=== PATIENT | male | born 1985 | race Caucasian/White ===

== ENCOUNTER 2017-05-11 17:41 | Emergency (ER) | payer BC ==
[2017-05-11 18:06] VITALS: BP 112/72
--- NOTE | 2017-05-11 19:40 | UC ---
Complaint Male HPI - HPI Summary HPI Summary: fever x 2 days + chills, body aches , fatigue , polyuria no dysuria , no back pain , no flank pain - History of Current Complaint Chief Complaint: UCRespiratory Stated Complaint: FLU SYMPTOMS Time Seen by Provider: 05/11/17 18:55 Hx Obtained From: Patient Onset/Duration: Gradual Onset, Lasting Days - 2, Still Present Timing: Constant Severity Initially: Severe Severity Currently: Severe Pain Intensity: 0 Pain Scale Used: 0-10 Numeric Aggravating Factor(s): Voiding Alleviating Factor(s): Nothing Associated Signs And Symptoms: Negative: Diaphoresis, Back Pain, Fever, Hematuria, Dysuria, Constipation, Blood in Stool, Rectal Pain, Appetite, Nausea , Vomiting(# Of Episodes =), Penile Swelling, Penile Discharge - Allergies/Home Medications Allergies/Adverse Reactions: Allergies Allergy/AdvReac Type Severity Reaction Status Date / Time Dextromethorphan Allergy Severe hives,coma Verified 05/11/17 18:06 PMH/Surg Hx/FS Hx/Imm Hx Previously Healthy: Yes Other History Of: Negative For: Anticoagulant Therapy - Surgical History Surgical History: None - Family History Known Family History: Negative: Diabetes - Social History Alcohol Use: Rare Substance Use Type: None Smoking Status (MU): Never Smoked Tobacco Review of Systems Constitutional: Fever, Chills, Fatigue Skin: Negative Eyes: Negative ENT: Negative Respiratory: Negative Cardiovascular: Negative Genitourinary: Frequency Is Patient Immunocompromised?: No All Other Systems Reviewed And Are Negative: Yes Physical Exam Triage Information Reviewed: Yes Appearance: Well-Appearing, No Pain Distress, Well-Nourished Vital Signs: Initial Vital Signs Temp 97.1 F 05/11/17 18:02 Pulse 109 05/11/17 18:02 Resp 16 05/11/17 18:02 BP 112/72 05/11/17 18:02 Pulse Ox 98 05/11/17 18:02 Vital Signs Reviewed: Yes Eyes: Positive: Conjunctiva Clear ENT: Positive: Normal ENT inspection, Hearing grossly normal, Pharynx normal Neck: Positive: Supple, Nontender, No Lymphadenopathy Respiratory: Positive: Chest non-tender, Lungs clear, Normal breath sounds Cardiovascular: Positive: RRR, No Murmur, Pulses Normal Abdominal Exam: Normal Abdomen Description: Positive: Nontender, No Organomegaly, Soft. Negative: CVA Tenderness (R), CVA Tenderness (L), Distended, Guarding Bowel Sounds: Positive: Present Skin Exam: Normal Complaint Male Course/Dx - Differential Dx/Diagnosis Provider Diagnoses: prostatitis Discharge - Discharge Plan Condition: Stable Disposition: HOME Prescriptions: Ciprofloxacin TAB* [Cipro 500 MG TAB*] 500 mg PO BID #30 tab Patient Education Materials: Prostatitis (ED) Forms: *Work Release Referrals: No Primary Care Phys,NOPCP [Primary Care Provider] - 7 Days
== END 2017-05-11 19:22 | disposition home or self-care (01) ==
LOC: UCCORT 17:41
DX: N41.9 Inflammatory disease of prostate, unspecified (principal)
CPT/HCPCS: 81003; 99202; G0463

== ENCOUNTER 2017-07-08 10:53 | Emergency (ER) | payer BC ==
[2017-07-08 12:12] VITALS: BP 129/85
--- NOTE | 2017-07-08 12:22 | UC ---
Skin Complaint HPI - HPI Summary HPI Summary: 32 year old with rash . Male with worsening itching since leaving hospital. rash on right outer wrist. started 2 days ago after being in the hosp with his after of baby. the rask is spreading around thw rist and down on his hand. he has been cleaning it with rubbing alcohol. He has taken benadryl and has applied lotion. The rash doesnt really itch anymore after he used the rubbing alcohol, but at first it did itch. He denies burning, stabbing, shooting type pains in the arm. Hwe denies flu like symptoms. Neither his or baby have sx. He denies hx of asthma, allergies, excema. 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 He also washes his hands a lot and is exposed to chemicals. He has never had a reaction to the chemicals before. [ End ] - History of Current Complaint Chief Complaint: UCSkin Time Seen by Provider: 07/08/17 12:13 Stated Complaint: RASH Hx Obtained From: Patient Onset/Duration: Gradual Onset Timing: Constant Onset Severity: Moderate Current Severity: Moderate Pain Intensity: 0 - Allergy/Home Medications Allergies/Adverse Reactions: Allergies Allergy/AdvReac Type Severity Reaction Status Date / Time MS Dextromethorphan Allergy Severe hives,coma Verified 07/08/17 12:12 [Dextromethorphan] Review of Systems Skin: Rash Is Patient Immunocompromised?: No All Other Systems Reviewed And Are Negative: Yes PMH/Surg Hx/FS Hx/Imm Hx Previously Healthy: Yes Other History Of: Negative For: Anticoagulant Therapy - Surgical History Surgical History: None - Family History Known Family History: Positive: None Negative: Diabetes - Social History Occupation: Employed Full-time Lives: With Family Alcohol Use: Rare Substance Use Type: None Smoking Status (MU): Never Smoked Tobacco Physical Exam Triage Information Reviewed: Yes Appearance: Well-Appearing, No Pain Distress, Well-Nourished Vital Signs: Initial Vital Signs Temp 97.8 F 07/08/17 12:05 Pulse 65 07/08/17 12:05 Resp 14 07/08/17 12:05 BP 129/85 07/08/17 12:05 Pulse Ox 100 07/08/17 12:05 Vital Signs Reviewed: Yes Eyes: Positive: Conjunctiva Clear ENT: Positive: Hearing grossly normal Respiratory: Positive: No respiratory distress Musculoskeletal Exam: Normal Neurological Exam: Normal Psychological Exam: Normal Skin: Positive: rashes - right lateral wrist with erxcoriated, raised, red rash 3x3 cm and also with linear red heaven rodriguez on the dorsal hand and in between the 2nd and 3rd as well as the 3rd and 4th digit interwebbing. Course/Dx - Course Course Of Treatment: potential exposure to scabies at hospital -- with the rash extending in to the webs of the hand / fingers will give permethrin to ensure no concerns for being contagious. use OTC moisturizers as well as steroid cream for itch and avoid itching. - Differential Diagnoses - Skin Complaint Differential Diagnoses: Eczema, Scabies - Diagnoses Provider Diagnoses: Dermatitis / scabies Discharge - Discharge Plan Condition: Good Disposition: HOME Prescriptions: Hydrocortisone Valerate [Westcort] 0.2 % TOPICAL BID PRN #1 tube PRN Reason: Itching Permethrin [Elimite] 5 % EX ONCE #1 applic Patient Education Materials: Contact Dermatitis (ED) Referrals: No Primary Care Phys,NOPCP [Primary Care Provider] - If Needed Additional Instructions: As we discussed just to ensure the resolution of your symptoms we will advise daily steroids, moisturizer to the itchy skin . Due to potential exposure to scabies we will treat at this time as well.
== END 2017-07-08 12:49 | disposition home or self-care (01) ==
LOC: UCCORT 10:53
DX: L30.9 Dermatitis, unspecified (principal); B86 Scabies
CPT/HCPCS: 99212; G0463

== ENCOUNTER 2019-02-09 09:00 | Emergency (ER) | payer BC ==
[2019-02-09 09:22] VITALS: BP 127/77
--- NOTE | 2019-02-09 09:55 | UC ---
Skin Complaint HPI - HPI Summary HPI Summary: 33 yo man with extensive varicosities both lower extremities, developed a painful swelling of his left outer lower extremity on 01/[address] and spending his first day on a cruise. Overall, swelling and pain has decreased in the past several days, but comes for assessment. No calf pain, increased pain with walking, shortness of breath. No family hx of DVT or clotting disorders. - History of Current Complaint Chief Complaint: UCLowerExtremity Time Seen by Provider: 02/09/19 09:45 Stated Complaint: LEFT LEG SKIN CONCERN Hx Obtained From: Patient Onset/Duration: Sudden Onset, Lasting Days - 12 Skin Exposure Onset/Duration: Days Ago Timing: Constant Pain Intensity: 5 Location: Discrete - left outer lower leg Character: Pain, Redness, Raised Aggravating Factor(s): Touch Alleviating Factor(s): Nothing - No meds used Associated Signs & Symptoms: Positive: Negative. Negative: Chest Pain, Lightheadedness, Syncope - Allergy/Home Medications Allergies/Adverse Reactions: Allergies Allergy/AdvReac Type Severity Reaction Status Date / Time dextromethorphan Allergy Severe See Comment Verified 02/09/19 09:16 Home Medications: Home Medications NK [No Home Medications Reported] 02/09/19 [History Confirmed 02/09/19] PMH/Surg Hx/FS Hx/Imm Hx Previously Healthy: Yes Other History Of: Negative For: Anticoagulant Therapy - Surgical History Surgical History: Yes Surgery Procedure, Year, and Place: vasectomy - Family History Known Family History: Positive: Cardiac Disease - father with CAD - Social History Occupation: Employed Full-time Lives: With Family Alcohol Use: Occasionally Substance Use Type: None Smoking Status (MU): Never Smoked Tobacco Review of Systems All Other Systems Reviewed And Are Negative: Yes Constitutional: Positive: Negative Motor: Positive: Other - lateral leg pain Psychological: Positive: Negative Is Patient Immunocompromised?: No Physical Exam Triage Information Reviewed: Yes Appearance: Well-Appearing, No Pain Distress Vital Signs: Initial Vital Signs Temp 97.7 F 02/09/19 09:16 Pulse 69 02/09/19 09:16 Resp 15 02/09/19 09:16 BP 127/77 02/09/19 09:16 Pulse Ox 100 02/09/19 09:16 ENT: Positive: Pharynx normal Respiratory: Positive: Lungs clear, Normal breath sounds Cardiovascular: Positive: RRR, No Murmur Abdomen Description: Positive: Nontender, No Organomegaly, Soft Musculoskeletal Exam: Normal Neurological Exam: Normal Neurological: Positive: Alert Skin Exam: Other - left anterolateral calf with 8 x 7 cm area of erythema, no warmth, with palpable vein with mild tenderness. No leg swelling. Negative Chano 's, soft calf with out tenderness. Extensive varicosities both LE Course/Dx - Course Course Of Treatment: Discussed superficial thrombophlebitis. His symptoms are resolving, and given the location, the risk of extending to DVT is low. Discussed treatment of varicosities. - Differential Diagnoses - Skin Complaint Differential Diagnoses: Cellulitis, Other - superficail thrombophlebitis - Diagnoses Provider Diagnosis: Superficial thrombophlebitis of left leg Discharge ED - Sign-Out/Discharge Documenting (check all that apply): Patient Departure All imaging exams completed and their final reports reviewed: No Studies - Discharge Plan Condition: Stable Disposition: HOME Patient Education Materials: Superficial Thrombophlebitis (ED) Referrals: Issac Guajardo MD [Primary Care Provider] - Judd Ochoa MD [Medical Doctor] - Additional Instructions: As discussed, you have a clot in the surface vein of the left leg. This will resolve without treatment, but you can take aspirin 325mg once daily. Limit use to 4 weeks, and take with food. You have a referral to Dr. Keenan to discuss varicose veins. - Billing Disposition and Condition Condition: STABLE Disposition: Home
== END 2019-02-09 10:22 | disposition home or self-care (01) ==
LOC: UCCORT 09:00
DX: I80.02 Phlebitis and thrombophlebitis of superficial vessels of left lower extremity (principal)
CPT/HCPCS: 99211; G0463

== ENCOUNTER 2019-03-15 08:48 | Emergency (ER) | payer BC ==
--- NOTE | 2019-03-15 10:30 | UC ---
Back Pain HPI - HPI Summary HPI Summary: 33-year-old male comes in with a chief complaint of low back pain. Couple weeks ago he was twisting turning and lifting had sudden onset of low back pain in the lower middle lumbar area. Did take ibuprofen and rested it and it did improve. He continue to have a small amount of discomfort in that same area over the last couple weeks. Yesterday when he was lifting something heavy he had sudden onset of increased pain in the same area again. No pain going down the legs no weakness no numbness no difficulty controlling urine or bowels. Reports taking an old muscle relaxer that he had that did not help much. Pain is worse with bending primarily when he leans forward. - History of Current Complaint Chief Complaint: UCBackPain Stated Complaint: BACK PAIN Time Seen by Provider: 03/15/19 09:58 Pain Intensity: 9 - Allergies/Home Medications Allergies/Adverse Reactions: Allergies Allergy/AdvReac Type Severity Reaction Status Date / Time dextromethorphan Allergy Severe See Comment Verified 03/15/19 09:01 Home Medications: Home Medications Aspirin TAB* [Aspirin 325 MG TAB*] 1 tab PO ONCE 03/15/19 [History Confirmed 02/23] PMH/Surg Hx/FS Hx/Imm Hx Previously Healthy: Yes Other History Of: Negative For: Anticoagulant Therapy - Surgical History Surgical History: Yes Surgery Procedure, Year, and Place: vasectomy - Family History Known Family History: Positive: None, Cardiac Disease - father with CAD Negative: Diabetes - Social History Alcohol Use: Occasionally Substance Use Type: None Smoking Status (MU): Never Smoked Tobacco Review of Systems All Other Systems Reviewed And Are Negative: Yes Constitutional: Positive: Negative Skin: Positive: Negative Eyes: Positive: Negative ENT: Positive: Negative Respiratory: Positive: Negative Cardiovascular: Positive: Negative Gastrointestinal: Positive: Negative Motor: Positive: Decreased ROM Neurovascular: Positive: Negative Musculoskeletal: Positive: Other: - SEE HPI Neurological: Positive: Negative Psychological: Positive: Negative Is Patient Immunocompromised?: No Physical Exam Triage Information Reviewed: Yes Appearance: Well-Appearing, Well-Nourished, Pain Distress - MILD WITH ROM Vital Signs: Initial Vital Signs Temp 97.4 F 03/15/19 08:58 Pulse 63 03/15/19 08:58 Resp 16 03/15/19 08:58 BP 127/72 03/15/19 08:58 Pulse Ox 100 03/15/19 08:58 Vital Signs Reviewed: Yes Eye Exam: Normal Eyes: Positive: Conjunctiva Clear Neck: Positive: Supple Respiratory: Positive: No respiratory distress Musculoskeletal: Positive: Other: - Tender to palpation in the lower lumbar area. Legs have full range of motion full-strength. Patellar reflexes 2+ bilaterally. No sensation deficits. Some increased low back pain with hip flexion left and right. Neurological: Positive: Alert Skin Exam: Normal Back Pain Course/Dx - Course Course Of Treatment: Gill Box Tender: Tucker Agarwal F, ([id number]) Local Tanker Truck Driver: SHASHI ( NUANCE) Report Date: 03/15/2019 10:09:00 Report Status: Final ====== Start of Report Content Patient Name: LORY ZIEGLER Medical Record#: [id number] Ordering Physician: Francesco Tran MD Acct.#: [id number] : Age: 33 Sex: M [facility] Exam Date: 03/15/19 1009 ADM Status: REG ER Order Information: SP LUMBARSACRAL 4+ VWS Accession Number: [id number] CPT: 90227 INDICATION: Low back pain. COMPARISON: There are no relevant prior studies available for comparison. TECHNIQUE: 5 views of the lumbar spine were obtained including lateral, oblique, AP and a coned-down lateral view of the lumbar sacral junction. FINDINGS: There is a mild lumbar scoliosis convex toward the left side. The vertebra otherwise in normal alignment. No fracture is seen. Disc spaces appear maintained. IMPRESSION: MILD SCOLIOSIS, OTHERWISE UNREMARKABLE STUDY. <Electronically signed by Tucker Agarwal MD in OV> [id number] Dictated By: Tucker Agarwal MD Dictated Date/Time: 03/15/19 103 Transcribed Date/Time: 03/15/19 103 Copy to: CC:Issac Guajardo MD; Francesco Tran MD Imaging - [facility] - [facility] Imaging - [facility] [address] [address] ph [phone]) ph ) ph ([phone]) End of Report Content I discussed the x-rays with the patient. Patient has no focal neurologic deficits at this time. Plan is ibuprofen on a regular basis lidocaine patch [id number] as needed. Also discussed stretching and strengthening. Did a prescription for both Flexeril and hydrocodone because the patient reports she 's had Flexeril without much relief but I urged him to try the muscle relaxer first. Plan will be to follow-up either with his primary care doctor or with sports medicine. Also let him know that if he had any worsening of his condition to include and he got a neurologic deficit he needs to get reevaluated right away to avoid permanent nerve damage. - Differential Dx/Diagnosis Provider Diagnosis: Low back pain Discharge ED - Sign-Out/Discharge Documenting (check all that apply): Patient Departure All imaging exams completed and their final reports reviewed: Yes - Discharge Plan Condition: Stable Disposition: HOME Prescriptions: Cyclobenzaprine TAB* [Flexeril 10 MG TAB*] 10 mg PO TID PRN #15 tab MDD 3 PRN Reason: Pain - Moderate HYDROcodone/ACETAMIN 5-325 MG* [[place] 5-325 TAB*] 1 tab PO Q4H PRN #20 tab MDD 6 PRN Reason: Pain - Moderate Patient Education Materials: Acute Low Back Pain (ED), Lower Back Exercises (ED ) Forms: *Work Release Referrals: Issac Guajardo MD [Primary Care Provider] - [facility] [Provider Group] Additional Instructions: FOLLOW UP WITH YOUR DOCTOR OR SPORTS MEDICINE IF NOT COMPLETELY IMPROVED. GET REEVALUATED SOONER IF NOT IMPROVING OR GO TO THE EMERGENCY DEPARTMENT IF YOUR CONDITION WORSENS; PAIN, WEAKNESS, NUMBNESS, DIFFICULTY CONTROLLING BOWEL OR BLADDER OR ANY QUESTIONS OR CONCERNS - Billing Disposition and Condition Condition: STABLE Disposition: Home
[2019-03-15 11:54] VITALS: BP 119/72
== END 2019-03-15 11:58 | disposition home or self-care (01) ==
LOC: UCCORT 08:48
DX: M54.5 Low back pain (principal); Z88.8 Allergy status to other drugs, medicaments and biological substances
CPT/HCPCS: 72110; 99212; G0463